=== PATIENT | male | born 1940 | race Caucasian/White ===

== ENCOUNTER 2017-03-23 18:49 | Emergency (ER) | payer MEDICARE, BC ==
[~2017-03-23] VITALS: Ht 177.8 cm; Wt 96.2 kg
[2017-03-23 19:11] VITALS: BP 100/55
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
== END 2017-03-23 19:30 | disposition home or self-care (01) ==
LOC: ER 18:54
DX: T22.112A Burn of first degree of left forearm, initial encounter (principal); I10 Essential (primary) hypertension; Z86.711 Personal history of pulmonary embolism; X10.2XXA Contact with fats and cooking oils, initial encounter; Y93.G3 Activity, cooking and baking; Y92.89 Other specified places as the place of occurrence of the external cause; Y99.9 Unspecified external cause status
CPT/HCPCS: 99283; A4606; Z7610